=== PATIENT | female | born 1940 | race Two or more races ===

== ENCOUNTER → 2017-02-06 | Outpatient (CLI) | payer MEDICARE, MEDICAID ==
[~2017-02-06] VITALS: Ht 139.7 cm; Wt 67.5 kg
[~2017-02-06] MED LIST: ALEN70TA48 PO; AMLO-512 PO; BIMA12.5OS OU; BRIM15DR2 OP; COMB5OS OP; HYDR25TA PO; METF500T PO; OMEP20 PO; SIMV10TA6 PO; VALS320T2 PO
[2017-02-06 11:12] VITALS: BP 124/63
== END | disposition home or self-care (01) ==
LOC: SRCNTR 10:32
PROVIDERS: ATTEND Internal Medicine Cardiovascular Disease
DX: J44.9 Chronic obstructive pulmonary disease, unspecified (principal); E11.9 Type 2 diabetes mellitus without complications; E78.5 Hyperlipidemia, unspecified; I10 Essential (primary) hypertension; R42 Dizziness and giddiness
CPT/HCPCS: 93005; G0463

== ENCOUNTER → 2017-09-23 | Outpatient (CLI) | payer MEDICARE, MEDICAID ==
[~2017-09-23] MED LIST changes: -HYDR25TA PO; -SIMV10TA6 PO; -VALS320T2 PO
== END | disposition home or self-care (01) ==
LOC: RADPV 11:25
PROVIDERS: ATTEND Family Medicine
DX: M25.571 Pain in right ankle and joints of right foot (principal)

== ENCOUNTER 2019-01-05 15:30 | Inpatient (IN) | payer MEDICARE, MEDICAID ==
[~2019-01-05] VITALS: Ht 142.2 cm; Wt 63.5 kg
[~2019-01-05 15:30] MED LIST changes: -ALEN70TA48 PO
[2019-01-05 16:30] VITALS: BP 155/68
[2019-01-05] MEDS ORDERED: MELATONIN 5 MG TABLET PO PRN (17:15)
[2019-01-05] MEDS ORDERED: ACETAMINOPHEN 325 MG TABLET PO PRN (17:15)
[2019-01-05] MEDS ORDERED: MAGNESIUM HYDROXIDE SUSPENSION 30 ML UDCUP PO PRN (18:30)
[2019-01-05 18:39] LABS: GLUCOMETER DEV NAME(LOC) 2WR.2; GLUCOSE,POINT OF CARE 180 MG/DL (70-110)
[2019-01-05] MEDS ORDERED: ONDANSETRON HCL 4 MG TABLET PO PRN (19:15)
[2019-01-05] MEDS ORDERED: ONDANSETRON HCL 4 MG TABLET NG PRN (19:15)
[2019-01-05] MEDS ORDERED: MECLIZINE HCL 25 MG TABLET PO PRN (19:15)
[2019-01-05] MEDS ORDERED: DEXTROSE 50%-WATER 25 GM/50 ML SYRINGE IVP PRN (19:30)
[2019-01-05] MEDS ORDERED: MECLIZINE HCL 25 MG TABLET NG PRN (19:44)
[2019-01-05] MEDS ORDERED: POTASSIUM CHL 10 MEQ/WATER 50 ML IV PRN (19:45)
[2019-01-05] MEDS ORDERED: POTASSIUM CHLORIDE 20 MEQ ER TABLET PO PRN (19:45)
[2019-01-05] MEDS ORDERED: MELATONIN 5 MG TABLET NG PRN (19:45)
[2019-01-05] MEDS ORDERED: MAGNESIUM HYDROXIDE SUSPENSION 30 ML UDCUP NG PRN (19:45)
[2019-01-05] MEDS ORDERED: BESIFLOXACIN HCL 0.6% 5 ML OPHTHALMIC SUSPENSION OU SCH ×2 (21:00)
[2019-01-05] MEDS ORDERED: DOCUSATE SODIUM 100 MG CAPSULE PO SCH (21:00)
[2019-01-05] MEDS ORDERED: SENNA 187 MG TABLET PO SCH (21:00)
[2019-01-05] MEDS: ASPIRIN 600 MG RECTAL SUPPOSITORY PR SCH (21:31)
[2019-01-05] MEDS: SENNA 187 MG TABLET NG SCH (21:32)
[2019-01-05] MEDS: DOCUSATE SODIUM 100 MG CAPSULE NG SCH (21:32)
[2019-01-05] MEDS: FAMOTIDINE 20 MG TABLET NG SCH (21:32)
[2019-01-05] MEDS: 0.9% SODIUM CHLORIDE 10 ML SYRINGE IVP SCH (23:42)
[2019-01-05] MEDS: INSULIN REGULAR, HUMAN 100 UNITS/ML SQ PRN (23:44)
[2019-01-05] MEDS: HEPARIN SODIUM,PORCINE 5,000 UNITS/ML VIAL SQ SCH (23:44)
[2019-01-06] VITALS: BP 155/77
[2019-01-06 00:03] LABS: GLUCOMETER DEV NAME(LOC) 2WR.2; GLUCOSE,POINT OF CARE 222 MG/DL (70-110)
[2019-01-06] MEDS ORDERED: DOCUSATE SODIUM 283 MG/5 ML MINI-ENEMA PR PRN (03:45)
[2019-01-06] MEDS ORDERED: ACETAMINOPHEN 650 MG/20.3 ML SOLUTION UDCUP NG PRN (05:15)
[2019-01-06] MEDS: INSULIN REGULAR, HUMAN 100 UNITS/ML SQ PRN ×3 (05:42→17:53)
[2019-01-06 06:06] LABS: BASOPHILS % (AUTO) 0.6 % (0.0-2.0); EOSINOPHILS % (AUTO) 0.6 % (1.0-6.0); HEMATOCRIT 44.2 % (36-46); HEMOGLOBIN 14.5 g/dL (12.0-16.0); LYMPHOCYTES # (AUTO) 1.2 K/uL (1.0-4.8); LYMPHOCYTES % (AUTO) 13.8 % (22.0-44.0); MEAN CORPUSCULAR HEMOGLOBIN 29.5 pg (26.0-34.0); MEAN CORPUSCULAR HGB CONC 32.8 G/dL (31.0-37.0); MEAN CORPUSCULAR VOLUME 90 fL (80-100); MONOCYTES # (AUTO) 0.8 K/uL (0.1-1.0); MONOCYTES % (AUTO) 8.8 % (2.0-9.0); NEUTROPHILS # (AUTO) 6.9 K/uL (1.8-7.7); NEUTROPHILS % (AUTO) 76.2 % (40.0-70.0); PLATELET COUNT (AUTO) 324 K/uL (150-450); RED BLOOD CELL COUNT(AUTO) 4.92 MIL/uL (4.00-5.20); RED CELL DISTRIBUTION WIDTH 13.5 % (11.5-14.5)
[2019-01-06 06:14] LABS: GLUCOMETER DEV NAME(LOC) 2WR.1; GLUCOSE,POINT OF CARE 235 MG/DL (70-110)
[2019-01-06 06:17] LABS: ALBUMIN 3.3 g/dL (3.4-5.0); BILIRUBIN,TOTAL 0.5 mg/dL (0.1-1.0); CREATININE 0.92 mg/dL (0.60-1.30); POTASSIUM 4.2 mmol/L (3.5-5.1); TOTAL PROTEIN, SERUM 7.6 g/dL (6.4-8.2)
[2019-01-06 07:05] VITALS: BP 184/74
[2019-01-06] MEDS: OXYGEN THERAPY IH SCH ×2 (08:00→21:08)
[2019-01-06] MEDS ORDERED: LACTULOSE 20 GM/30 ML SOLUTION UDCUP PO PRN (08:00)
[2019-01-06] MEDS: LISINOPRIL 10 MG TABLET PO SCH (08:35)
[2019-01-06] MEDS: FAMOTIDINE 20 MG TABLET NG SCH ×2 (08:36→21:09)
[2019-01-06] MEDS: ATORVASTATIN CALCIUM 40 MG TABLET NG SCH (08:36)
[2019-01-06] MEDS: DOCUSATE SODIUM 100 MG CAPSULE NG SCH ×2 (08:36→21:09)
[2019-01-06] MEDS: AmLODIPine BESYLATE 10 MG TABLET NG SCH (08:36)
[2019-01-06] MEDS: HEPARIN SODIUM,PORCINE 5,000 UNITS/ML VIAL SQ SCH (08:37)
[2019-01-06] MEDS: 0.9% SODIUM CHLORIDE 10 ML SYRINGE IVP SCH ×3 (08:38→23:56)
[2019-01-06 11:00] VITALS: BP 143/63
[2019-01-06 12:40] LABS: GLUCOMETER DEV NAME(LOC) 2WR.1; GLUCOSE,POINT OF CARE 225 MG/DL (70-110)
[2019-01-06] MEDS ORDERED: *PATIENT'S OWN MED [ENTER DRUG, DOSE, FREQUENCY IN COMMENTS] CLINICAL ONE (15:45)
[2019-01-06 16:41] VITALS: BP 151/72
[2019-01-06] MEDS: MetFORMIN HCL 500 MG TABLET NG SCH (17:26)
[2019-01-06] MEDS: LOTEPREDNOL ETABONATE 0.5% OD SCH ×2 (17:26→21:07)
[2019-01-06 19:32] LABS: GLUCOMETER DEV NAME(LOC) 2WR.1; GLUCOSE,POINT OF CARE 212 MG/DL (70-110)
[2019-01-06] MEDS ORDERED: LATANOPROSTENE BUNOD 0.024% OU SCH (21:00)
[2019-01-06] MEDS ORDERED: BESIFLOXACIN HCL 0.6% 5 ML OPHTHALMIC SUSPENSION OU SCH (21:00)
[2019-01-06] MEDS: DORZOLAMIDE/TIMOLOL 2-0.5% [22.3-6.8MG/ML] 10 ML OPHTHALMIC SOLUTION OS SCH (21:08)
[2019-01-06] MEDS: SENNA 187 MG TABLET NG SCH (21:09)
[2019-01-06] MEDS: ASPIRIN 600 MG RECTAL SUPPOSITORY PR SCH (21:10)
[2019-01-06 22:29] LABS: APPEARANCE,URINE CLOUDY (CLEAR); BILIRUBIN,URINE NEGATIVE (NEGATIVE); GLUCOSE, URINE (UA) NEGATIVE (NEGATIVE); KETONES,URINE NEGATIVE (NEGATIVE); LEUKOCYTE ESTERASE ,URINE NEGATIVE (NEGATIVE); NITRATE,URINE NEGATIVE (NEGATIVE); OCCULT BLOOD,URINE NEGATIVE (NEGATIVE); PH,URINE 5.5 (5.0-8.0); PROTEIN,URINE POS 1+ (NEGATIVE); UROBILINOGEN,URINE 0.2 mg/dL (<=1.0)
[2019-01-06 22:44] LABS: WBC,URINE 0-2 /HPF (0-5)
[2019-01-06 22:47] LABS: BACTERIA,URINE None Seen /HPF (None Seen); RBC,URINE None Seen /HPF (0-2)
[2019-01-06 22:48] LABS: SQUAMOUS EPITHELIAL CELL,UR Few /LPF (None Seen)
[2019-01-06 23:45] VITALS: BP 146/72
[2019-01-07] MEDS ORDERED: DEXTROSE 5%-0.45% SODIUM CHL 1,000 ML IV ONE
[2019-01-07] MEDS: INSULIN REGULAR, HUMAN 100 UNITS/ML SQ PRN ×2 (01:11→06:06)
[2019-01-07 01:21] LABS: GLUCOMETER DEV NAME(LOC) 2WR.2; GLUCOSE,POINT OF CARE 185 MG/DL (70-110)
[2019-01-07 06:29] LABS: GLUCOMETER DEV NAME(LOC) 2WR.1; GLUCOSE,POINT OF CARE 201 MG/DL (70-110)
[2019-01-07 08:05] VITALS: BP 153/70
[2019-01-07] MEDS: 0.9% SODIUM CHLORIDE 10 ML SYRINGE IVP SCH (08:06)
[2019-01-07] MEDS: OXYGEN THERAPY IH SCH (08:06)
[2019-01-07] MEDS: MetFORMIN HCL 500 MG TABLET NG SCH (08:06)
[2019-01-07] MEDS: LOTEPREDNOL ETABONATE 0.5% OD SCH (08:41)
[2019-01-07] MEDS: DORZOLAMIDE/TIMOLOL 2-0.5% [22.3-6.8MG/ML] 10 ML OPHTHALMIC SOLUTION OS SCH (08:41)
[2019-01-07] MEDS: LISINOPRIL 10 MG TABLET PO SCH (08:42)
[2019-01-07] MEDS: DOCUSATE SODIUM 100 MG CAPSULE NG SCH (08:42)
[2019-01-07] MEDS: AmLODIPine BESYLATE 10 MG TABLET NG SCH (08:42)
[2019-01-07] MEDS: FAMOTIDINE 20 MG TABLET NG SCH (08:43)
[2019-01-07] MEDS: ATORVASTATIN CALCIUM 40 MG TABLET NG SCH (08:43)
[2019-01-07 11:43] VITALS: BP 156/78
[2019-01-07] MEDS ORDERED: SODIUM CHLORIDE 0.9% 1,000 ML IV SCH (12:00)
[2019-01-07] MEDS ORDERED: SODIUM CHLORIDE 0.9% 1,000 ML IV ONE (12:07)
[2019-01-07 12:10] LABS: PROTHROMBIN TIME 10.3 SEC (9.4-11.6)
[2019-01-07] MEDS ORDERED: EPINEPHrine 1:1,000 [1 MG/ML] AMP IM ONE (12:14)
[2019-01-07] MEDS ORDERED: MIDAZOLAM HCL 2 MG/2 ML VIAL IVP ONE (12:14)
[2019-01-07] MEDS ORDERED: ATROPINE SULFATE 0.1 MG/ML 10 ML SYRINGE IVP ONE (12:14)
[2019-01-07] MEDS ORDERED: LIDOCAINE/PF 2% 5 ML VIAL IM ONE (12:14)
[2019-01-07] MEDS ORDERED: GLYCOPYRROLATE 0.2 MG/ML VIAL IM ONE (12:14)
[2019-01-07] MEDS ORDERED: EPINEPHrine 1:10,000 [1 MG/10 ML] SYRINGE IVP ONE (12:14)
[2019-01-07] MEDS ORDERED: PROPOFOL 1% 20 ML VIAL IVP ONE (12:14)
[2019-01-07] MEDS ORDERED: EPHEDrine SULFATE 50 MG/ML VIAL IM ONE (12:14)
[2019-01-07] MEDS ORDERED: CeFAZolin 1 GM/DEXTROSE 50 ML IV ONE (12:30)
[2019-01-07 12:49] LABS: GLUCOMETER DEV NAME(LOC) 2WR.1; GLUCOSE,POINT OF CARE 226 MG/DL (70-110)
[2019-01-07] MEDS ORDERED: SODIUM CHLORIDE 0.9% 500 ML IV ONE (13:08)
[2019-01-07 13:45] LABS: ABG A-A DIFF O2 507.1 mmHg (10-20.0); ABG BASE EXCESS -5.8 mmol/L (-2.0-3.0); ABG CARBOXYHEMOGLOBIN 0.6 % (0.0-1.5); ABG HCO3 20.5 mmol/L (22.0-26.0); ABG METHEMOGLOBIN 0.1 % (0.0-1.5); ABG OXYHEMOGLOBIN 98.3 % (94.0-100.0); ABG PCO2 33 mmHg (35-45); ABG PH 7.388 (7.35-7.450); ABG TOTAL HEMOGLOBIN 13.5 G/dL (12.0-18.0); PO2, ARTERIAL BG 175.1 mmHg (75.0-83.0); SOURCE, BLOOD GAS ARTERIAL; TEMPERATURE, FAHRENHEIT, BG 97.4 FAHREN (96.0-98.6)
[2019-01-07 13:46] LABS: O2 DEVICE,BLOOD GAS VENTILATOR (ROOM AIR); PEEP,BG 5 cm H2O; SITE, BLOOD GAS ARTLINE; VT, ABG 450 ml
[2019-01-07] MEDS ORDERED: NOREPINEPHRINE 4 MG/D5%-WATER 250 ML IV PRN (14:14)
[2019-01-07 16:37] LABS: BASOPHILS % (AUTO) 0.4 % (0.0-2.0); EOSINOPHILS % (AUTO) 0.2 % (1.0-6.0); HEMATOCRIT 39.3 % (36-46); HEMOGLOBIN 12.5 g/dL (12.0-16.0); LYMPHOCYTES # (AUTO) 0.6 K/uL (1.0-4.8); LYMPHOCYTES % (AUTO) 4.6 % (22.0-44.0); MEAN CORPUSCULAR HEMOGLOBIN 29.4 pg (26.0-34.0); MEAN CORPUSCULAR HGB CONC 31.9 G/dL (31.0-37.0); MEAN CORPUSCULAR VOLUME 92 fL (80-100); MONOCYTES % (AUTO) 7.6 % (2.0-9.0); NEUTROPHILS # (AUTO) 11.8 K/uL (1.8-7.7); PLATELET COUNT (AUTO) 327 K/uL (150-450); RED BLOOD CELL COUNT(AUTO) 4.25 MIL/uL (4.00-5.20); RED CELL DISTRIBUTION WIDTH 13.4 % (11.5-14.5)
[2019-01-07 16:47] LABS: NEUTROPHILS % (AUTO) 87.2 % (40.0-70.0)
[2019-01-07 16:50] LABS: CALCIUM, TOTAL 9.2 mg/dL (8.8-10.5); CREATININE 1.2 mg/dL (0.60-1.30); POTASSIUM 3.8 mmol/L (3.5-5.1)
[2019-01-07 16:55] LABS: ALBUMIN 3.3 g/dL (3.4-5.0); BILIRUBIN,TOTAL 0.6 mg/dL (0.1-1.0); TOTAL PROTEIN, SERUM 6.8 g/dL (6.4-8.2)
[2019-01-07 17:04] LABS: INR 1.1 (0.9-1.1); PROTHROMBIN TIME 11.1 SEC (9.4-11.6)
[2019-01-07 17:47] LABS: PLATELET MORPHOLOGY COMMENT NORMAL
== END 2019-01-07 12:15 | disposition short-term general hospital (02) | DRG 56 ==
LOC: 2WR 15:30
PROVIDERS: ADMIT Physical Medicine & Rehabilitation; ATTEND Physical Medicine & Rehabilitation
PROC: 0DJ08ZZ Inspection of Upper Intestinal Tract, Via Natural or Artificial Opening Endoscopic (ICD-10-PCS; principal; 2019-01-07 12:10)
DX: I69.351 Hemiplegia and hemiparesis following cerebral infarction affecting right dominant side (principal); I63.9 Cerebral infarction, unspecified; E78.5 Hyperlipidemia, unspecified; G31.84 Mild cognitive impairment of uncertain or unknown etiology; H40.9 Unspecified glaucoma; I10 Essential (primary) hypertension; I65.23 Occlusion and stenosis of bilateral carotid arteries; R13.12 Dysphagia, oropharyngeal phase; K29.70 Gastritis, unspecified, without bleeding; K44.9 Diaphragmatic hernia without obstruction or gangrene; R09.02 Hypoxemia; Z53.8 Procedure and treatment not carried out for other reasons; E11.9 Type 2 diabetes mellitus without complications; Z90.710 Acquired absence of both cervix and uterus; Z90.49 Acquired absence of other specified parts of digestive tract; Z82.49 Family history of ischemic heart disease and other diseases of the circulatory system
CPT/HCPCS: 36600; 70450; 74018; 82306; 82805; 87081; 92507; 92508; 92610; 93308; 94002; 97112; 97163; 97167; 97530; 97535; G0238; J0171; J0461; J0690; J1644; J2250; J2704; J3490; J7030; J7040